=== PATIENT | female | born 1945 | race Caucasian/White ===

== ENCOUNTER 2024-02-16 17:52 | Emergency (ER) | payer BC ==
[~2024-02-16] VITALS: Ht 160 cm; Wt 63.5 kg
[2024-02-16 17:56] VITALS: BP 151/78; PULSE 100; RESP 22; TEMP 99.7; O2SAT 98
[2024-02-16] MEDS: ALBUTEROL 0.083% 2.5 MG/3 ML NEBU INH ONE (18:33)
[2024-02-16] MEDS: IPRATROPIUM 0.02% 0.5 MG/2.5 ML NEBU INH ONE (18:34)
[2024-02-16 18:38] VITALS: PULSE 105; RESP 24; O2SAT 99
[2024-02-16] MEDS ORDERED: PRED20TA5 PO (19:17)
[2024-02-16] MEDS ORDERED: ROB PO (19:17)
[2024-02-16 19:42] VITALS: BP 151/78; PULSE 105; RESP 24; TEMP 99.7; O2SAT 99
== END 2024-02-16 19:42 | disposition home or self-care (01) ==
LOC: MED 17:52
DX: R05.9 Cough, unspecified (principal); R09.89 Other specified symptoms and signs involving the circulatory and respiratory systems; I10 Essential (primary) hypertension; E11.9 Type 2 diabetes mellitus without complications
CPT/HCPCS: 71045; 94640; 99283; J7613; J7644